=== PATIENT | female | born 1995 | race Caucasian/White ===

== ENCOUNTER 2016-07-23 10:54 | Outpatient (CLI) | payer MEDICAID | END 2016-07-23 11:53 | disposition home or self-care (01) | LOC: LC 10:54 | PROVIDERS: ATTEND Student in an Organized Health Care Education/Training Program | PROC: 4A1HXCZ Monitoring of Products of Conception, Cardiac Rate, External Approach (ICD-10-PCS; principal; 2016-07-23) | DX: O48.0 Post-term pregnancy (principal); Z3A.40 40 weeks gestation of pregnancy | CPT/HCPCS: 59025 ==

== ENCOUNTER 2016-07-26 02:42 | Inpatient (IN) | payer MEDICAID ==
[2016-07-26 03:32] LABS: APPEARANCE,URINE CLOUDY; BILIRUBIN,URINE NEGATIVE (NEGATIVE); GLUCOSE, URINE NEGATIVE (NEGATIVE); KETONES,URINE NEGATIVE (NEGATIVE); LEUKOCYTE ESTERASE,URINE TRACE (NEGATIVE); NITRITE,URINE NEGATIVE (NEGATIVE); PROTEIN,URINE 30 mg/dL (NEGATIVE)
[2016-07-26 03:38] LABS: AMNISURE (ROM) NEGATIVE (NEGATIVE)
[2016-07-26 03:58] LABS: URINE BARBITURATES SCREEN NEGATIVE; URINE METHADONE SCREEN NEGATIVE; URINE OPIATES LOW NEGATIVE; URINE PHENCYCLIDINE SCREEN NEGATIVE
[2016-07-26 04:32] LABS: ABSOLUTE BASOPHILS # (AUTO) 0.1 10^3/uL (0.0-0.2); ABSOLUTE EOSINOPHILS # (AUTO) 0.1 10^3/uL (0.0-0.6); ABSOLUTE LYMPHOCYTES (AUTO) 2.1 10^3/uL (0.5-4.7); ABSOLUTE MONOCYTES (AUTO) 1.4 10^3/uL (0.1-1.4); BASOPHILS % (AUTO) 0.4 % (0-2); EOSINOPHILS % (AUTO) 0.7 % (0-6); HEMATOCRIT 35.9 % (36.0-47.0); HEMOGLOBIN 11.8 g/dL (12.0-15.5); HGB HCT DIFFERENCE -0.5; LYMPHOCYTES % (AUTO) 15.5 % (13-45); MEAN CORPUSCULAR HEMOGLOBIN 27.7 pg (27.0-33.4); MEAN CORPUSCULAR HGB CONC 32.8 g/dL (32.0-36.0); MEAN CORPUSCULAR VOLUME 85 fl (80-97); MONOCYTES % (AUTO) 10.2 % (3-13); RED BLOOD COUNT 4.25 10^6/uL (3.72-5.28); RED CELL DISTRIBUTION WIDTH 15.6 % (11.5-14.0); SEGMENTED NEUTROPHILS % (AUTO) 73.2 % (42-78); WHITE BLOOD COUNT 13.7 10^3/uL (4.0-10.5)
[2016-07-26] MEDS ORDERED: NALBUPHINE HCL INJ 10 MG/1 ML AMPULE INJ ONE ×2 (05:14→11:17)
[2016-07-26] MEDS ORDERED: NALBUPHINE HCL INJ 10 MG/1 ML AMPULE ONE ×3 (05:17→11:10)
[2016-07-26] MEDS: RINGERS SOLUTION,LACTATED 1,000 ML IV PRN ×2 (05:25→05:26)
--- NOTE | 2016-07-26 09:34 | L&D Progress Notes ---
PROGRESS NOTES Datetime Report Generated by CPN: 07/26/2016 09:33 PROGRESS NOTE Impression: Normal Progression of Labor; Reassuring Heart Rate Procedures: Artificial ROM; Sterile Vag Exam Plan: Continue Present Management Informed Consent Obtained: Vaginal Delivery Vital Signs : Reviewed; Within Normal Limits Comment: Coping ok with ctx, considering epidural. AROM, mec fluid. Will continue to montior VAGINAL EXAM Dilatation: 4 Effacement: 80 Station: -2 Contractions: irregular MEMBRANES Membranes: Ruptured Amniotic Fluid Color: Meconium, Particulate FETUS A FHR - Baseline: 125 Monitoring: External US Variability: Moderate 6-25bpm Accelerations: 15X15 Decelerations: None FHR Category: Category I SIGNATURE SIGNATURE: [id number] Assignment: Radha Whittington MD Signature: with User ID: [email or web address] : with User ID: [email or web address]
[2016-07-26] MEDS ORDERED: FENTANYL CITRATE INJ/PF 100 MCG/2 ML AMPUL ONE ×2 (11:56→12:59)
[2016-07-26] MEDS ORDERED: EPHEDRINE SULFATE INJ 50 MG/1 ML AMPULE ONE (11:57)
[2016-07-26] MEDS ORDERED: FENTANYL/BUPIVACAINE/NS/PF 200 MCG/100 ML RTUINJ EPI ONE ×2 (11:57→21:02)
[2016-07-26] MEDS ORDERED: BUPIVACAINE HCL 0.25 % INJ/PF (2.5 MG/1 ML) 30 ML VIAL ONE (11:57)
[2016-07-26] MEDS ORDERED: PHENYLEPHRINE HCL INJ/PF 10 MG/1 ML SDV ONE (11:57)
[2016-07-26] MEDS ORDERED: OXYTOCIN/NORMAL SALINE 20 UNIT/1,000 ML RTUINJ ONE (14:02)
[2016-07-26] MEDS ORDERED: OXYTOCIN/NORMAL SALINE 1,000 ML IV PRN (14:40)
--- NOTE | 2016-07-26 14:50 | L&D Progress Notes ---
PROGRESS NOTES Datetime Report Generated by CPN: 07/26/2016 14:49 PROGRESS NOTE Impression: Normal Progression of Labor; Reassuring Heart Rate Procedures: Sterile Vag Exam Plan: Continue Present Management; Induction Informed Consent Obtained: Vaginal Delivery Vital Signs : Reviewed; Within Normal Limits Comment: Still uncomfortable with epidural Resting between ctx Pitocin just started Continue per protocol VAGINAL EXAM Dilatation: 6 Effacement: 80 Station: -1 Contractions: 2-4 MEMBRANES Membranes: Ruptured Amniotic Fluid Color: Meconium, Particulate FETUS A FHR - Baseline: 130 Monitoring: External US Variability: Moderate 6-25bpm Accelerations: 15X15 Decelerations: None FHR Category: Category I FETUS C SIGNATURE: [id number] Assignment: Radha Whittington MD Signature: with User ID: [email or web address] : with User ID: [email or web address]
[2016-07-26] MEDS ORDERED: SODIUM BICARBONATE 8.4% INJ 50 MEQ/50 ML DISP.SYRIN ONE (15:57)
[2016-07-26] MEDS ORDERED: LIDOCAINE 2%/EPINEPHRINE INJ 20 ML VIAL ONE (15:57)
[2016-07-27] MEDS ORDERED: LIDOCAINE 1% INJ-PF (10 MG/ML) 30 ML SDV ONE (00:11)
[2016-07-27] MEDS ORDERED: PSEUDOEPHEDRINE HCL 30 MG TABLET PO PRN (00:32)
[2016-07-27] MEDS ORDERED: ZOLPIDEM TARTRATE 5 MG TABLET PO PRN (00:32)
[2016-07-27] MEDS ORDERED: PROMETHAZINE HCL 25 MG SUPP.RECT PR PRN (00:32)
[2016-07-27] MEDS ORDERED: OXYTOCIN/NORMAL SALINE 1,000 ML IV PRN (00:32)
[2016-07-27] MEDS ORDERED: MEASLES,MUMPS&RUBELLA VACC/PF 0.5 ML VIAL SUBCUT PRN (00:32)
[2016-07-27] MEDS ORDERED: DIPH/PERTUSS(ACELL)/TETANUS VAC/PF 0.5 ML SYR (>=10YO) IM PRN (00:32)
[2016-07-27] MEDS ORDERED: ACETAMINOPHEN 650 MG SUPP.RECT PR PRN (00:32)
[2016-07-27] MEDS ORDERED: PROMETHAZINE HCL INJ 25 MG/1 ML VIAL IV PRN (00:32)
[2016-07-27] MEDS ORDERED: PROMETHAZINE HCL 25 MG TABLET PO PRN (00:32)
[2016-07-27] MEDS ORDERED: NA PHOS,M-B/NA PHOS,DI-BA (ADULT) 133 ML ENEMA PR PRN (00:32)
[2016-07-27] MEDS ORDERED: ACETAMINOPHEN WITH CODEINE #3 TABLET PO PRN (00:32)
[2016-07-27] MEDS ORDERED: GLYCERIN/WITCH HAZEL LEAF 1 EACH MED..PAD TP PRN (00:32)
[2016-07-27] MEDS ORDERED: MAGNESIUM HYDROXIDE SUSP 30 ML UDCUP PO PRN (00:32)
[2016-07-27] MEDS ORDERED: DIPHENHYDRAMINE HCL 25 MG CAPSULE PO PRN (00:32)
[2016-07-27] MEDS ORDERED: DIBUCAINE 1% OINTMENT 28 GM TP PRN (00:32)
[2016-07-27] MEDS ORDERED: OXYTOCIN/NORMAL SALINE 20 UNIT/1,000 ML RTUINJ ONE (01:10)
--- NOTE | 2016-07-27 01:45 | Delivery Summary ---
Del Sum A-C Datetime Report Generated by CPN: 07/27/2016 01:45 DELIVERY PERSONNEL DELIVERY PERSONNEL: [id number] Delivery Doctor:: Radha Whittington MD Labor and Delivery Nurse:: Krissy Frazier RNtrack announcer Nurse:: Adriana Dave RN Nursery Nurse:: MARY Basurto/INFECTION CONTROL COORDINATOR: Amaya Garner CNA MATERNAL INFORMATION Delivery Anesthesia: Epidural Medications After Delivery: Pitocin Bolus-Please Comment; Pitocin Drip 20 Units/1000ml NSS Maternal Complications: None Provider Comments: VFI delivered in Direct OA presentation. No nuchal cord. Shoulders and body delivered w/o difficulty. Cord doubly clamped and cut and to maternal abdomen. Placenta delivered intact spontaneously. FF at U+2. Good hemostasis post repair. Apgars 8/9. weight 9#3oz. Mother and baby stable upon provider leaving the room. LABOR SUMMARY EDC: 07/19/2016 00:00 No. Babies in Womb: 1 Attempted: No Labor Anesthesia: Epidural LABOR INFORMATION Reason for Induction: Not Applicable Onset of Labor: 07/26/2016 09:15 Complete Dilatation: 07/26/2016 23:30 Oxytocin: Augmentation Group B Beta Strep: negative Antibiotics # of Doses: 0 Steroids Given: None Reason Steroids Not Administered: Not Applicable MEMBRANES Membranes Rupture Method: Artificial Rupture of Membranes: 07/26/2016 09:15 Length of Rupture (hr): 14.80 Amniotic Fluid Color: Moderate Meconium Amniotic Fluid Amount: Small Amniotic Fluid Odor: None STAGES OF LABOR Stage 1 hr: 14 Stage 1 min: 15 Stage 2 hr: 0 Stage 2 min: 33 Stage 3 hr: 0 Stage 3 min: 4 Total Time in Labor hr: 14 Total Time in Labor min: 52 VAGINAL DELIVERY Episiotomy: None Laceration Extension: N/A Laceration Type: Perineal Other Laceration: abrasion R labial/vaginal w/ repairt Laceration Repair: Yes Laceration Repair Note: Abrasion noted at introitus and on right vaginal sidewall - repaired for hemostasis. Sponge Count Correct: N/A Sharps Count Correct: Yes CSECTION DELIVERY Primary Indication: N/A Secondary Indication: N/A CSection Incision: N/A BABY A INFORMATION Infant Delivery Date/Time: 07/27/2016 00:03 Method of Delivery: Vaginal Born in Route : No : N/A Forceps: N/A Vacuum Extraction: N/A Shoulder Dystocia : No PRESENTATION/POSITION BABY A Presentation: Cephalic Cephalic Presentation: Vertex Vertex Position: OA Breech Presentation: N/A PLACENTA INFORMATION BABY A Placenta Delivery Time : 07/27/2016 00:07 Placenta Method of Delivery: Spontaneous Placenta Status: Delivered SCORES BABY A Heart Rate 1 min: >100 bpm Resp Effort 1 min: Good Cry Reflex Irritability 1 min: Cough or Sneeze or Pulls Away Muscle Tone 1 min: Active Motion Color 1 min: Blue/Pale Resuscitation Effort 1 min: Tactile Stimulation SCORE 1 MIN: 8 Heart Rate 5 min: >100 bpm Resp Effort 5 min: Good Cry Reflex Irritability 5 min: Cough or Sneeze or Pulls Away Muscle Tone 5 min: Active Motion Color 5 min: Body [place], Extremities Blue Resuscitation Effort 5 min: N/A SCORE 5 MIN: 9 INFORMATION BABY A Gestational Age at Delivery: 41.1 Gestational Status: Late Term- 41- 41.6 Weeks Outcome : Liveborn Infant Condition : Stable Sex: Female IDENTIFICATION BABY A Verification Date/Time: 07/27/2016 00:14 ID Band Number: [id number] Mother's Name Verified: Yes Infant RN Verifying : B Lebron, RN Additional Verifying Personnel: R Otero, RN WEIGHT/LENGTH BABY A Birthweight (gm): 4180 Infant Weight (lb): 9 Weight (oz): 3 Length (in): 21.50 Infant Length (cm): 54.61 CORD INFORMATION BABY A No. Cord Vessels: 3 Nuchal Cord : N/A Cord Blood Taken: Yes-For Eval (Mom's Blood Type - or O+) Infant Suction: Mouth; Nose ASSESSMENT BABY A Complications: None Physical Findings at Delivery: Within Normal Limits Infant Respirations: Appears Normal Skin to Skin: Yes Skin to Skin Time (min): 80 Infant Care By: Obie RN Transferred To: Remains with Mother SIGNATURES Signature: with User ID: [email or web address]
[2016-07-27] MEDS ORDERED: IBUPROFEN 800 MG TABLET ONE (02:03)
[2016-07-27] MEDS: IBUPROFEN 800 MG TABLET PO SCH ×3 (02:04→21:54)
--- NOTE | 2016-07-27 02:44 | Admission Physical ---
Datetime Report Generated by CPN: 07/27/2016 02:44 CURRENT ADMISSION Hx Assessment: The History has been Reviewed and is Current Chief Complaint: Uterine Contractions Admit Plan: Initiate Labor Protocol ALLERGIES Medication Allergies: No Medication Allergies: No Known Allergies (07/26/2016) Medication Allergies: No Known Allergies (07/23/2016) Latex: No Latex Allergies Food Allergies: none Environmental Allergies: none OBSTETRICAL HISTORY EDC: 07/19/2016 00:00 : 1 Para: 0 Term: 0 : 0 SAB: 0 IAB: 0 Ectopic: 0 Livin Cesareans: 0 VBACs: 0 Multiple Births: 0 Gestational Diabetes: No Rh Sensitization: No Incompetent Cervix: No IRIS: No Infertility: No ART Treatment: No Uterine Anomaly: No IUGR: No Hx Previous C/S: No Macrosomia: No Hx Loss/Stillborn: No PIH: No Hx : No Placenta Previa/Abruption: No Depression/PP Depression: No PTL/PROM: No Post Hemorrhage: No Current Procedures: Ultrasound; NST Obstetrical History Comments: G1: Current SEE RECORDS Alcohol: No Marijuana : Yes Marijuana Comments: +THC 07/26/16 Cocaine: No Other Illicit Drugs: No Cigarettes: Former Smoker. [id number] Cigarette Comments: quit 07/2015 MEDICAL HISTORY Diabetes: No Blood Transfusion: No Pulmonary Disease (Asthma, TB): No Breast Disease: No Hypertension: No Lamp Wirer Surgery: No Heart Disease: No Hosp/Surgery: No Autoimmune Disorder: No Anesthetic Complications: No Kidney Disease: No Abnormal Pap Smear: Yes Neuro/Epilepsy: No Psychiatric Disorders: No Other Medical Diseases: No Hepatitis/Liver Disease: No Significant Family History: No Varicosities/Phlebitis: No Trauma/Violence : No Thyroid Dysfunction: No Medical History Comments: ASCUS pap +HPV hypoglycemia 2 knee surgeries, wisdom teeth INFECTIOUS HISTORY Gonorrhea: No Genital Herpes: No Chlamydia: No Tuberculosis: No Syphilis: No Hepatitis: No HIV/AIDS Exposure: No Rash or Viral Illness: No HPV: Yes PHYSICAL EXAM General: Normal HEENT: Normal Neurologic: Normal Thyroid: Normal Heart: Normal Lungs: Normal Breast: Normal Back: Normal Abdomen: Normal Genitourinary Exam: Normal Extremities: Normal DTRs: Normal Pelvic Type: Adequate Physical Exam Comments: pt with 50 pound mat wt gain this and efw of 8 pounds 15 oz on recent sono. VAGINAL EXAM Dilatation: 6 Dilatation: 4 Effacement: 80 Effacement: 80 Station: -1 Station: -2 Contraction Comments: 2-4 Contraction Comments: irregular MEMBRANES Membranes: Ruptured Membranes: Ruptured Amniotic Fluid Color: Meconium, Particulate Amniotic Fluid Color: Meconium, Particulate FETUS A EGA: 41.0 FHR Category: Category I Admit Comment: Pt had been scheduled for induction but now appears to be spontaneously laboring-if not continuing to change cervix will augment with pitocin. PLANS FOR LABOR AND DELIVERY Labor and Delivery: None Pain Management: None Feeding Preference: Breast Benefit of Breast Feed Discussed: Yes Circumcision: N/A INFORMED CONSENT Informed Consent Obtained: Vaginal Delivery Informed Consent Obtained: Vaginal Delivery Signature: with User ID: [email or web address]
[2016-07-27] MEDS: ACETAMINOPHEN WITH CODEINE #3 TABLET PO PRN ×2 (07:50→17:36)
[2016-07-27] MEDS: BENZOCAINE/MENTHOL AEROSOL SPRAY 56 ML TOP PRN ×2 (07:50→23:55)
[2016-07-27] MEDS ORDERED: DOCUSATE SODIUM 100 MG CAPSULE PO SCH (10:00)
[2016-07-27] MEDS ORDERED: FERROUS SULFATE 325 MG TABLET PO SCH (10:00)
[2016-07-27] MEDS ORDERED: PRENATAL VITAMIN W-O CA NO5/FE FUMARATE/FA CAPSULE PO SCH (10:00)
[2016-07-27] MEDS: FAMOTIDINE 20 MG TABLET PO SCH ×2 (10:08→21:54)
[2016-07-27] MEDS: DOCUSATE SODIUM 100 MG CAPSULE PO SCH ×2 (10:08→17:36)
[2016-07-27] MEDS: SENNOSIDES/DOCUSATE 8.6-50 MG 1 EACH TABLET PO SCH (10:08)
[2016-07-27] MEDS: PRENATAL VITAMIN W-O CA NO5/FE FUMARATE/FA CAPSULE PO SCH (10:09)
[2016-07-27] MEDS: FERROUS SULFATE 325 MG TABLET PO SCH ×2 (10:09→17:36)
[2016-07-28] MEDS: IBUPROFEN 800 MG TABLET PO SCH ×3 (05:39→22:16)
[2016-07-28 07:43] LABS: HEMATOCRIT 30.7 % (36.0-47.0); HEMOGLOBIN 9.9 g/dL (12.0-15.5); MEAN CORPUSCULAR HEMOGLOBIN 28.1 pg (27.0-33.4); MEAN CORPUSCULAR HGB CONC 32.3 g/dL (32.0-36.0); MEAN CORPUSCULAR VOLUME 87 fl (80-97); RED BLOOD COUNT 3.54 10^6/uL (3.72-5.28); WHITE BLOOD COUNT 12.9 10^3/uL (4.0-10.5)
[2016-07-28] MEDS: SENNOSIDES/DOCUSATE 8.6-50 MG 1 EACH TABLET PO SCH (09:11)
[2016-07-28] MEDS: FAMOTIDINE 20 MG TABLET PO SCH ×2 (09:11→22:46)
[2016-07-28] MEDS: DOCUSATE SODIUM 100 MG CAPSULE PO SCH ×2 (09:11→17:28)
[2016-07-28] MEDS: PRENATAL VITAMIN W-O CA NO5/FE FUMARATE/FA CAPSULE PO SCH (09:12)
[2016-07-28] MEDS: FERROUS SULFATE 325 MG TABLET PO SCH ×2 (09:12→17:28)
--- NOTE | 2016-07-28 09:40 | PDOC PROGRESS REPORT ---
Subjective-OB Subjective: Post Delivery Day: 21 year old. Denies any needs at this time Doing well, wants to go home, has plans for Fathers Day tonight, breast feeding , diet taken well, ambulating Physical Exam (OB) Vital Signs: Temp Pulse Resp BP Pulse Ox 97.8 F 68 17 106/71 100 07/28/16 07:18 07/28/16 07:18 07/28/16 07:18 07/28/16 07:18 07/28/16 07:18 - Lochia Lochia Amount: Scant < 10 ml Lochia Color: Rubra/Red - Abdomen Description: Soft Hernia Present: No Fundal Description: Firm, Midline Fundal Height: u/u - u/2 Objective-Diagnostic Laboratory: 07/28/16 07:30 07/28/16 07:30 WBC 12.9 H RBC 3.54 L Hgb 9.9 L Hct 30.7 L MCV 87 MCH 28.1 MCHC 32.3 RDW 16.0 H Plt Count 187 Assessment and Plan(PN) - Assessment and Plan (1) Vaginal delivery Is this a current diagnosis for this admission?: Yes - Time Spent with Patient Time with patient: Less than 15 minutes Medications reviewed and adjusted accordingly: Yes - Disposition Anticipated Discharge: Home Within: within 24 hours
--- NOTE | 2016-07-28 10:08 | PDOC DISCHARGE SUMMARY ---
Final Diagnosis Discharge Date: 07/28/16 - Final Diagnosis (1) Vaginal delivery Is this a current diagnosis for this admission?: Yes Discharge Data - Discharge Medication Home Medications: Ferrous Sulfate [Iron] 1 tab PO DAILY 07/23/16 Vit/Iron Fumarate/FA [ Tablet] 1 tab PO DAILY 07/23/16 Valacyclovir HCl [Valtrex 500 Mg Tablet] 500 mg PO DAILY 07/23/16 Acetaminophen with Codeine [Tylenol #3 Tablet] 1 each PO Q4HP PRN #20 tablet Ibuprofen [Motrin 800 mg Tablet] 800 mg PO Q8 #30 tablet 07/28/16 Gestational Age: 41.1 Reason(s) for Admission: Onset of Labor Admission Note: augmentation, AROM Procedures: NST, Ultrasound Intrapartum Procedure(s): Spontaneous Vaginal Delivery Complication(s): Laceration-Perineal - Diagnosis Test Laboratory: Temp Pulse Resp BP Pulse Ox 97.8 F 68 17 106/71 100 07/28/16 07:18 07/28/16 07:18 07/28/16 07:18 07/28/16 07:18 07/28/16 07:18 07/26/16 07/26/16 07/28/16 03:15 04:19 07:30 RBC 4.25 3.54 L Hgb 11.8 L 9.9 L Hct 35.9 L 30.7 L Urine Opiates Screen NEGATIVE - Discharge information/Instructions Discharge Activity: Activity As Tolerated Discharge Diet: As Tolerated, Regular Disposition: HOME, SELF-CARE Follow up with: [facility] in: 4, Weeks
[2016-07-29] MEDS: ACETAMINOPHEN WITH CODEINE #3 TABLET PO PRN (02:40)
[2016-07-29] MEDS: IBUPROFEN 800 MG TABLET PO SCH ×2 (05:20→13:13)
[2016-07-29 08:34] VITALS: BP 113/70
--- NOTE | 2016-07-29 08:53 | PDOC PROGRESS REPORT ---
Subjective-OB Subjective: Post Delivery Day: 21 year old. Denies any needs at this time Doing well, ready to go home, baby should go today, no c/o Physical Exam (OB) Vital Signs: Temp Pulse Resp BP Pulse Ox 96.0 F L 63 18 113/70 100 07/29/16 08:25 07/29/16 08:25 07/29/16 08:25 07/29/16 08:25 07/29/16 08:25 - Lochia Lochia Amount: Scant < 10 ml Lochia Color: Rubra/Red - Abdomen Description: Tender, Soft, Round Hernia Present: No Fundal Description: Firm, Midline Fundal Height: u/u - u/2 Objective-Diagnostic Laboratory: 07/28/16 07:30 Assessment and Plan(PN) - Assessment and Plan (1) Vaginal delivery Is this a current diagnosis for this admission?: Yes - Time Spent with Patient Time with patient: Less than 15 minutes Medications reviewed and adjusted accordingly: Yes - Disposition Anticipated Discharge: Home Within: Other - home today
--- NOTE | 2016-07-29 08:55 | PDOC DISCHARGE SUMMARY ---
Final Diagnosis Discharge Date: 07/29/16 - Final Diagnosis (1) Vaginal delivery Is this a current diagnosis for this admission?: Yes Discharge Data - Discharge Medication Home Medications: Ferrous Sulfate [Iron] 1 tab PO DAILY 07/23/16 Vit/Iron Fumarate/FA [ Tablet] 1 tab PO DAILY 07/23/16 Valacyclovir HCl [Valtrex 500 Mg Tablet] 500 mg PO DAILY 07/23/16 Acetaminophen with Codeine [Tylenol #3 Tablet] 1 each PO Q4HP PRN #20 tablet Ibuprofen [Motrin 800 mg Tablet] 800 mg PO Q8 #30 tablet 07/28/16 Gestational Age: 41.1 Reason(s) for Admission: Onset of Labor Admission Note: augmentation, GBS neg AROM Procedures: NST, Ultrasound Intrapartum Procedure(s): Spontaneous Vaginal Delivery Complication(s): Laceration-Perineal Laceration-Degree: 1st - Diagnosis Test Laboratory: Temp Pulse Resp BP Pulse Ox 96.0 F L 63 18 113/70 100 07/29/16 08:25 07/29/16 08:25 07/29/16 08:25 07/29/16 08:25 07/29/16 08:25 07/26/16 07/26/16 07/28/16 03:15 04:19 07:30 RBC 4.25 3.54 L Hgb 11.8 L 9.9 L Hct 35.9 L 30.7 L Urine Opiates Screen NEGATIVE - Discharge information/Instructions Discharge Activity: Activity As Tolerated Discharge Diet: As Tolerated, Regular Disposition: HOME, SELF-CARE Follow up with: [facility] in: 4, Weeks
[2016-07-29] MEDS: DOCUSATE SODIUM 100 MG CAPSULE PO SCH (09:08)
[2016-07-29] MEDS: SENNOSIDES/DOCUSATE 8.6-50 MG 1 EACH TABLET PO SCH (09:08)
[2016-07-29] MEDS: FERROUS SULFATE 325 MG TABLET PO SCH (09:08)
[2016-07-29] MEDS: FAMOTIDINE 20 MG TABLET PO SCH (09:08)
[2016-07-29] MEDS: PRENATAL VITAMIN W-O CA NO5/FE FUMARATE/FA CAPSULE PO SCH (09:08)
== END 2016-07-29 14:45 | disposition home or self-care (01) | DRG 775 ==
LOC: LC 02:42 → LR 03:52 → 2S 07-27 02:40
PROVIDERS: ADMIT Specialist; ATTEND Specialist
PROC: 10907ZC Drainage of Amniotic Fluid, Therapeutic from Products of Conception, Via Natural or Artificial Opening (ICD-10-PCS; 2016-07-26)
PROC: 10E0XZZ Delivery of Products of Conception, External Approach (ICD-10-PCS; principal; 2016-07-27)
PROC: 0HQ9XZZ Repair Perineum Skin, External Approach (ICD-10-PCS; 2016-07-27)
DX: O70.0 First degree perineal laceration during delivery (principal); Z3A.41 41 weeks gestation of pregnancy; Z37.0 Single live birth
CPT/HCPCS: 36415; 80307; 81005; 84112; 85025; 85027; 86592; 86850; 86900; 86901; 94760; J2300; J2370; J2590; J3010; J3490